=== PATIENT | female | born 1950 | race Caucasian/White ===

== ENCOUNTER 2023-05-30 10:39 | Emergency (ER) | payer MEDICARE, MEDICAID ==
[~2023-05-30] VITALS: Ht 162.6 cm; Wt 70.0 kg
[~2023-05-30 10:39] MED LIST: NO HOME MEDS
[2023-05-30 10:47] VITALS: O2SAT 100
[2023-05-30] MEDS ORDERED: BENZ200C52 MT (12:54)
[2023-05-30 14:32] VITALS: BP 131/81; PULSE 73; RESP 18; TEMP 98.6
== END 2023-05-30 14:33 | disposition home or self-care (01) ==
LOC: ER 10:39
DX: J06.9 Acute upper respiratory infection, unspecified (principal); Z20.822 Contact with and (suspected) exposure to COVID-19
CPT/HCPCS: 71045; 87426; 99284

== ENCOUNTER 2023-07-10 09:32 | Emergency (ER) | payer MEDICARE, MEDICAID ==
[~2023-07-10] VITALS: Ht 157.5 cm; Wt 61.0 kg
[~2023-07-10 09:32] MED LIST changes: +BENZ200C52 MT
[2023-07-10 09:41] VITALS: BP 134/40; PULSE 73; RESP 20; TEMP 98.4; O2SAT 98
[2023-07-10] MEDS ORDERED: MAGNESIUM/ALUMINUM HYDROXIDE/SIMETHICONE 30ML UDC PO ONE (11:00)
[2023-07-10] MEDS: MAGNESIUM/ALUMINUM HYDROXIDE/SIMETHICONE 30ML UDC PO NR (15:01)
[2023-07-10] MEDS ORDERED: FAMO20TA8 MT (15:03)
[2023-07-10] MEDS ORDERED: BENZ100C86 MT (15:03)
== END 2023-07-10 15:30 | disposition home or self-care (01) ==
LOC: ER 09:32
DX: R13.10 Dysphagia, unspecified (principal); R05.9 Cough, unspecified; Z20.822 Contact with and (suspected) exposure to COVID-19
CPT/HCPCS: 87426; 87804; 99283

== ENCOUNTER 2025-03-28 09:19 | Emergency (ER) | payer MEDICARE, MEDICAID ==
[~2025-03-28] VITALS: Ht 157.5 cm; Wt 73.8 kg
[~2025-03-28 09:19] MED LIST changes: +BENZ100C86 MT; +FAMO20TA8 MT
[2025-03-28 09:22] VITALS: O2SAT 98
[2025-03-28] MEDS: KETOROLAC 15MG/ML VIAL IV ONE (10:31)
[2025-03-28] MEDS: ACETAMINOPHEN 500MG TABLET PO ONE (10:31)
[2025-03-28 10:35] LABS: BASOPHILS % 0.7 % (0.0-2.0); EOSINOPHILS % 3.0 % (0.0-5.0); HEMATOCRIT. 34.7 % (36.0-48.0); HEMOGLOBIN. 11.2 g/dL (12.0-16.0); LYMPHOCYTES % 25.9 % (20.0-50.0); MEAN PLATELET VOLUME 8.6 fl (7.4-10.4); MONOCYTES % 6.0 % (2.0-8.0); NEUTROPHILS % 64.4 % (40.0-76.0); PLATELET 274 x1000/uL (130-400); RED BLOOD CELL COUNT 4.21 mill/uL (4.2-5.4); RED CELL DISTRIBUTION WIDTH 13.6 % (11.6-14.6)
[2025-03-28] MEDS: SODIUM CHLORIDE 0.9% 1,000 ML IV ONE (10:54)
[2025-03-28 10:56] LABS: CREATININE 0.8 mg/dL (0.6-1.0)
[2025-03-28 10:57] LABS: PROTEIN TOTAL 7.1 g/dL (6.0-8.3); TROPONIN I HIGH SENSITIVITY < 4 ng/L (3.0-34); UREA NITROGEN BLOOD 11 mg/dL (9-23)
[2025-03-28 10:58] LABS: ASPARTATE AMINOTRANSFERASE 15 IU/L (<34)
[2025-03-28 10:59] LABS: BILIRUBIN DIRECT 0.1 mg/dL (<=3.0); BILIRUBIN TOTAL 0.4 mg/dL (0.1-1.0)
[2025-03-28 12:47] LABS: TROPONIN I HIGH SENSITIVITY < 4 ng/L (3.0-34)
[2025-03-28 14:51] VITALS: BP 117/60; PULSE 78; RESP 20; TEMP 37.1; O2SAT 97
[2025-03-28 16:02] LABS: INFLUENZA TYPE A Presumptive Negative (Pres. Neg.)
[2025-03-28 16:03] LABS: INFLUENZA TYPE B Presumptive Negative (Pres. Neg.); RESPIRATORY SYNCYTIAL VIRUS Not Detected (Not Detectd)
== END 2025-03-28 14:56 | disposition home or self-care (01) ==
LOC: ER 09:19 → CANBEDREQ 11:31 → ER 14:56
DX: J06.9 Acute upper respiratory infection, unspecified (principal); Z20.822 Contact with and (suspected) exposure to COVID-19; Z79.899 Other long term (current) drug therapy
CPT/HCPCS: 99285; 96360; 71045; 96361; 87426; 80076; 80048; 83880; 85025; 87420; 84484; 36415; 87804 ×2; 93005; J1885; J7030